=== PATIENT | female | born 1955 | race Two or more races ===

== ENCOUNTER 2018-09-12 13:32 | Emergency (ER) | payer BC ==
[~2018-09-12] VITALS: Ht 157.5 cm; Wt 83.9 kg
[2018-09-12 14:15] VITALS: BP 139/78
[2018-09-12] MEDS ORDERED: ERYT1OIN6 OP (14:21)
--- NOTE | 2018-09-12 14:21 | PHYS DOC ---
Adult General Chief Complaint Chief Complaint: EYE PROBLEMS HPI HPI Patient is a 63 year old [place]-speaking female who presents to the ED today complaining of a stye on the left upper eyelid that began 8 days ago. Patient states she started using warm compresses and noted small amount of drainage yest erday. Denies any vision loss. States he had another stye a couple days ago which cleared up on the same upper eyelid. Respiratory Assistant line was used for [place] Review of Systems Review of Systems Constitutional: Denies fever or chills [] Eyes: Denies change in visual acuity, redness, or eye pain [] Reports tight to the left upper eyelid Musculoskeletal: Denies back pain or joint pain [] Integument: Denies rash or skin lesions [] Neurologic: Denies headache, focal weakness or sensory changes [] Endocrine: Denies polyuria or polydipsia [] All other systems were reviewed and found to be within normal limits, except as documented in this note. Physical Exam Physical Exam Constitutional: Well developed, well nourished, no acute distress, non-toxic appearance. [] Eyes: PERRLA, EOMI, conjunctiva normal, no discharge. Left upper inner eyelid with a small stye, this state is fluctuant. Skin: Warm, dry, no erythema, no rash. [] Neurologic: Alert and oriented X 3, normal motor function, normal sensory function, no focal deficits noted. [] Psychologic: Affect normal, judgement normal, mood normal. [] EKG EKG [] Radiology/Procedures Radiology/Procedures [] Course & Med Decision Making Course & Med Decision Making Pertinent Labs and Imaging studies reviewed. (See chart for details) This is a 63-year-old. Patient presenting to the ED today with a stye to the left upper inner eyelid. This ties fluctuant and ready to be drained. Patient refused to have it drained. She was provided erythromycin eye ointment. Warm compresses recommended follow-up with electric motor and generator assembler. Rosana Disclaimer Rosana Disclaimer This electronic medical record was generated, in whole or in part, using a voice recognition dictation system. Departure Departure Impression: Primary Impression: Hordeolum internum left upper eyelid Disposition: 01 HOME, SELF-CARE Condition: STABLE Referrals: NO PCP (PCP) RODRIGO AC MD follow up in the course of this week Patient Instructions: Sty Additional Instructions: You were evaluated in the emergency room for stye on the left upper eyelid. Continue applying warm compresses to the area and use the prescribed eye ointment as ordered. Follow-up with the electric motor and generator assembler provided in the course of this week. Scripts Erythromycin Base (Erythromycin) 1 Gm Oint...g. 0.5 APPLIC OP Q4HRS W/A, #1 MISC Apply half 1/2 inch to the left upper inner eyelid for 7 days Prov: FARAZ DUENAS APRN 09/12/18 FARAZ DUENAS APRN Sep 12, 2018 14:21
== END 2018-09-12 14:38 | disposition home or self-care (01) ==
LOC: ER 13:32
DX: H00.024 Hordeolum internum left upper eyelid (principal)
CPT/HCPCS: 99283